=== PATIENT | male | born 1970 | race Native Hawaiian/Other Pacific Islander ===

== ENCOUNTER 2017-01-05 21:33 | Emergency (ER) | payer OTHER ==
[~2017-01-05] VITALS: Ht 177.8 cm; Wt 63.5 kg
[2017-01-05 22:29] VITALS: BP 122/64; TEMP 98.3
== END 2017-01-05 22:31 | disposition home or self-care (01) ==
LOC: ED 21:33
PROC: 08C0XZZ Extirpation of Matter from Right Eye, External Approach (ICD-10-PCS; principal; 2017-01-05)
DX: H57.11 Ocular pain, right eye (principal); T15.91XA Foreign body on external eye, part unspecified, right eye, initial encounter; Y92.098 Other place in other non-institutional residence as the place of occurrence of the external cause
CPT/HCPCS: 99283

== ENCOUNTER 2017-02-16 19:42 | Emergency (ER) | payer OTHER ==
[~2017-02-16] VITALS: Ht 180.3 cm; Wt 61.2 kg
[2017-02-16 21:03] VITALS: BP 114/60; TEMP 97.9
== END 2017-02-16 21:07 | disposition home or self-care (01) ==
LOC: ED 19:42
DX: M54.5 Low back pain (principal); M54.31 Sciatica, right side; M51.36 Other intervertebral disc degeneration, lumbar region
CPT/HCPCS: 96374; 99284; J1885

== ENCOUNTER 2018-11-14 08:22 | Emergency (ER) | payer OTHER ==
[~2018-11-14] VITALS: Ht 180.3 cm; Wt 63.5 kg
[2018-11-14 08:34] VITALS: TEMP 97.8
[2018-11-14 09:38] LABS: PLATELET COUNT 325 K/uL (142-355)
[2018-11-14 10:02] LABS: POTASSIUM 4.2 mmol/L (3.6-5.2)
[2018-11-14 12:07] VITALS: BP 105/66
== END 2018-11-14 12:07 | disposition home or self-care (01) ==
LOC: ED 08:22
PROVIDERS: Family Medicine
DX: J06.9 Acute upper respiratory infection, unspecified (principal); R05 Cough
CPT/HCPCS: 80053; 81000; 85027; 96372; 99283; J0696

== ENCOUNTER → 2019-05-06 18:28 | Outpatient (CLI) | payer OTHER | END | disposition home or self-care (01) | LOC: AMB 18:28 | DX: Z04.1 Encounter for examination and observation following transport accident (principal); R52 Pain, unspecified ==

== ENCOUNTER 2021-01-18 20:36 | Emergency (ER) | payer OTHER ==
[~2021-01-18] VITALS: Ht 180.3 cm; Wt 63.5 kg
[2021-01-18 21:31] VITALS: BP 104/62; TEMP 99.5
== END 2021-01-18 21:36 | disposition home or self-care (01) ==
LOC: ED 20:36
DX: N48.22 Cellulitis of corpus cavernosum and penis (principal); N39.0 Urinary tract infection, site not specified
CPT/HCPCS: 81000; 87086; 87088; 96372; 99283; J0696; J1885

== ENCOUNTER 2022-06-28 14:28 | Emergency (ER) | payer OTHER ==
[~2022-06-28] VITALS: Ht 180.3 cm; Wt 63.5 kg
[2022-06-28 14:35] VITALS: TEMP 99
[2022-06-28 15:22] LABS: PLATELET COUNT 252 K/uL (142-355)
[2022-06-28 15:23] LABS: POTASSIUM 4.4 mmol/L (3.6-5.2)
[2022-06-28 18:20] VITALS: BP 96/46
== END 2022-06-28 19:12 | disposition home or self-care (01) ==
LOC: ED 14:28
PROVIDERS: Emergency Medicine Emergency Medical Services
DX: J20.9 Acute bronchitis, unspecified (principal); J44.0 Chronic obstructive pulmonary disease with (acute) lower respiratory infection; F17.210 Nicotine dependence, cigarettes, uncomplicated; Z20.822 Contact with and (suspected) exposure to COVID-19
CPT/HCPCS: 80048; 85007; 85027; 87040; 87502; 87635; 87651; 96360; 96374; 99284; J0696; J2405; Q9963; U0003

== ENCOUNTER 2023-04-18 14:37 | Outpatient (CLI) | payer OTHER | END 2023-04-18 19:17 | disposition home or self-care (01) | LOC: RAD 14:37 | PROVIDERS: ATTEND Orthopaedic Surgery | DX: M79.642 Pain in left hand (principal) ==